=== PATIENT | female | born 1960 | race Caucasian/White ===

== ENCOUNTER → 2018-09-17 | Outpatient (CLI) | payer OTHER ==
[~2018-09-17] MED LIST: ABILIFY5 MG PO; ACIDOPHILUS1 EAC4 PO; ALLEGRA; ASPIR 8181 MG; ASPIRIN325 MG PO; ATENOLOL 25 MG; BUTORPHANOL; CALCIUM 600 +1 EAC8 PO; CINNAMON; CLARITIN10 M2 PO; CO Q-10200 MG; COQ-10 PO; CYCLOBENZAPRINE10 MG PO; DAILY VITAMIN1 EAC3 PO; FISH OIL 1,2001 EACH PO; HORIZANT600 MG; HYDROCODON-ACE1 EAC9 PO; LEVOTHYROXINE; LIPOFEN150 MG PO; LUMIGAN2.5 M1 OP; LUNESTA3 MG PO; MORPHINE SULFAT15 M1; MSIR PO; OXYCODONE HCL20 M1 PO; PRAVASTATIN SOD40 MG PO; PROMETHAZINE; SLO-NIACIN250 MG PO; SLO-NIACIN500 MG; STADOL PO; TIZANIDINE HCL2 MG PO; TRAZODONE HCL50 MG PO; TURMERIC; VITAMIN B-121000 MCG PO; VRAYLAR
--- OUTSIDE RECORDS SUMMARY | 2018-09-17 09:47 | XMS REPORT | Continuity of Care Document ---
Author Author [facility] Organization [facility] Address Unknown Phone Unavailable Care Team Providers Care Medical Geneticist Name Role Phone MD Cosme, Kailey KENNEY Unavailable Insurance Providers Payer name Policy type / Coverage type Policy ID Covered constitution party ID Policy [place] [employer] Encounters Encounter Performer Location Date Office Visit Kailey Aguiar MD [facility] Feb 17, 2015 Problems Problem Effective Dates Problem Status HEADACHE Feb 17, 2015 Active HYPERTENSION Feb 17, 2015 Active HYPERCHOLESTEROLEMIA Feb 17, 2015 Active [facility] BREAST [facility]CER Feb 17, 2015 Active Procedures Date Description Comments Feb 17, 2015 smoking status Never smoker Medications Medication Instructions Start Date Status LYRICA 50 MG CAPS 1 po bid Feb 17, 2015 Active ATENOLOL 25 MG TABS 1 po qd Feb 17, 2015 Active ABILIFY 5 MG TABS 1 po qd Feb 17, 2015 Active LIPOFEN 50 MG CAPS 1 po qhs Feb 17, 2015 Active PRAVASTATIN SODIUM 40 MG TABS 1 po qd Feb 17, 2015 Active CYCLOBENZAPRINE HCL 10 MG TABS 1 po tid prn Feb 17, 2015 Active LUNESTA 3 MG TABS 1 po qhs Feb 17, 2015 Active TRAZODONE HCL 50 MG TABS 1 po qhs Feb 17, 2015 Active MELOXICAM 7.5 MG TABS Feb 17, 2015 Active LUMIGAN 0.01 % SOLN Feb 17, 2015 Active HYDROCODONE-ACETAMINOPHEN 10-325 MG TABS Feb 17, 2015 Active BUTORPHANOL TARTRATE 10 MG/ML SOLN prn Feb 17, 2015 Active COQ10 200 MG CAPS Feb 17, 2015 Active SLO-NIACIN 500 MG CR-TABS Feb 17, 2015 Active FISH OIL 1000 MG CAPS Feb 17, 2015 Active CALCIUM + D3 TABS Feb 17, 2015 Active ASPIRIN 325 MG TABS Feb 17, 2015 Active MULTIVITAMINS CAPS Feb 17, 2015 Active CLARITIN TABS Feb 17, 2015 Active FLONASE SUSP Feb 17, 2015 Active Vital Signs Date Description Test Result Feb 17, 2015 weight E&M - 3141-9 WEIGHT 169 lb Feb 17, 2015 height E&M - 8302-2 HEIGHT 63 in Feb 17, 2015 respiratory rate E&M - 9279-1 RESP RATE 12 /min Feb 17, 2015 pulse rate E&M - 8867-4 PULSE RATE 69 /min Feb 17, 2015 blood pressure, systolic - 8480-6 BP SYSTOLIC 134 mm Hg Feb 17, 2015 blood pressure, diastolic - 8462-4 BP DIASTOLIC 64 mm Hg
--- OUTSIDE RECORDS SUMMARY | 2018-09-17 09:47 | XMS REPORT | Continuity of Care Document ---
Author Author [facility] Interface Address Unknown Phone Unavailable Problems Problem Status Onset Date Classification Date Reported Comments Source HEADACHE Active 02/17/2015 Condition 02/17/2015 Medical Group HYPERTENSION Active 02/17/2015 Condition 02/17/2015 Medical Group HYPERCHOLESTEROLEMIA Active 02/17/2015 Condition 02/17/2015 Medical Group FH BREAST CANCER Active 02/17/2015 Condition 02/17/2015 Medical Group Medications Medication Details Route Status Patient Instructions Ordering Provider Order Date Source LYRICA 50 MG CAPS 1 po bid Active 02/17/2015 Medical Group ATENOLOL 25 MG TABS 1 po qd Active 02/17/2015 Medical Group ABILIFY 5 MG TABS 1 po qd Active 02/17/2015 Medical Group LIPOFEN 50 MG CAPS 1 po qhs Active 02/17/2015 Medical Group PRAVASTATIN SODIUM 40 MG TABS 1 po qd Active 02/17/2015 Medical Group CYCLOBENZAPRINE HCL 10 MG TABS 1 po tid prn Active 02/17/2015 Medical Group LUNESTA 3 MG TABS 1 po qhs Active 02/17/2015 Medical Group TRAZODONE HCL 50 MG TABS 1 po qhs Active 02/17/2015 Medical Group MELOXICAM 7.5 MG TABS Active 02/17/2015 Medical Group LUMIGAN 0.01 % SOLN Active 02/17/2015 Medical Group HYDROCODONE-ACETAMINOPHEN 10-325 MG TABS Active 02/17/2015 Medical Group BUTORPHANOL TARTRATE 10 MG/ML SOLN prn Active 02/17/2015 Medical Group COQ10 200 MG CAPS Active 02/17/2015 Medical Group SLO-NIACIN 500 MG CR-TABS Active 02/17/2015 Medical Group FISH OIL 1000 MG CAPS Active 02/17/2015 Medical Group CALCIUM + D3 TABS Active 02/17/2015 Medical Group ASPIRIN 325 MG TABS Active 02/17/2015 Medical Group MULTIVITAMINS CAPS Active 02/17/2015 Medical Group CLARITIN TABS Active 02/17/2015 Medical Group FLONASE SUSP Active 02/17/2015 Medical Group Allergies, Adverse Reactions, Alerts Substance Category Reaction Severity Reaction type Status Date Reported Comments Source Immunizations Immunization Date Given Site Status Last Updated Comments Source Results Order Name Results Value Reference Range Date Interpretation Comments Source Vital Signs Vital Sign Value Date Comments Source Weight 169 02/17/2015 Medical Group Height 63 02/17/2015 Medical Group Respitory Rate 12 02/17/2015 Medical [facility] Heart Rate 69 02/17/2015 Medical Group Systolic (mm Hg) 134 02/17/2015 Medical Group Diastolic (mm Hg) 64 02/17/2015 Medical Group Encounters Location Location Details Encounter Type Encounter Number Reason For Visit Attending Provider ADM Date DC Date Status Source [facility] Office Visit [id number] Kailey Aguiar MD 02/17/2015 02/17/2015 Medical [facility] Procedures Procedure Code Date Perfomer Comments Source
[2018-09-17 11:02] LABS: ALBUMIN 4.2 g/dL (3.5-5.0); ALBUMIN/GLOBULIN RATIO 1.6 (0.8-2.0); ANION GAP 14.4 mmol/L (8-16); CALCIUM 10.2 mg/dL (8.4-10.2); CREATININE, SERUM 1.22 mg/dL (0.57-1.11); POTASSIUM 4.4 mmol/L (3.5-5.1)
--- NOTE | 2018-09-17 13:01 | Diagnostic Imaging Report ---
Exam: Pelvic ultrasound. History: Bilateral ovarian masses. Comparison: <None.> Findings: Transabdominal sonographic evaluation of the pelvis. The uterus is surgically absent. The right ovary is not visualized. In the right adnexa, there is a 5.4 x 4.1 x 5 cm simple anechoic cyst. The left ovary is not visualized. In the left adnexa, there is a complex cystic lesion which is predominately anechoic but contains several septations. The cyst measures 7.4 x 3.9 x 4.3 cm. No demonstrated doppler flow. No free fluid is visualized in the pelvis. The bladder appears unremarkable. Bilateral ureteral jets are present. Impression: Bilateral ovaries are not visualized. Indeterminate complex left adnexal cystic lesion with associated septations. MRI is suggested for further evaluation. Right adnexal simple cyst. Status post hysterectomy. Signed by: Dr. Juliana Eller MD on 09/17/2018 12:57 PM
== END ==
LOC: US 09:32 → RAD 09:44
PROVIDERS: ATTEND Surgery
DX: N83.202 Unspecified ovarian cyst, left side (principal); N83.201 Unspecified ovarian cyst, right side
CPT/HCPCS: 36415; 76856; 80053; 86304

== ENCOUNTER 2018-10-13 08:27 | Observation (INO) | payer OTHER ==
[2018-10-10 11:58] LABS: BASOPHILS # (AUTO) 0.1 (0.0-0.1); EOSINOPHILS # (AUTO) 0.2 (0.0-0.4); EOSINOPHILS % 2.6 % (0.0-6.0); HEMATOCRIT 43.3 % (34.2-44.1); HEMOGLOBIN 14.3 g/dL (12.0-16.0); LYMPHOCYTES % 41.9 % (18.0-39.1); MEAN CORPUSCULAR HEMOGLOBIN 30.4 pg (28-32); MEAN CORPUSCULAR VOLUME 91.9 fL (81-99); MONOCYTES # (AUTO) 0.6 (0.2-0.8); MONOCYTES % 7.6 % (4.4-11.3); NEUTROPHILS # (AUTO) 3.4 (2.1-6.9); NEUTROPHILS % 46.6 % (38.7-80.0); PLATELET COUNT 206 x10e3/uL (140-360); RED BLOOD COUNT 4.71 x10e6/uL (3.6-5.1); RED CELL DISTRIBUTION WIDTH 17.9 % (11.7-14.4)
[2018-10-10 12:15] LABS: ANION GAP 13.2 mmol/L (8-16); CALCIUM 10.2 mg/dL (8.4-10.2); CREATININE, SERUM 1.09 mg/dL (0.57-1.11); POTASSIUM 4.2 mmol/L (3.5-5.1)
--- NOTE | 2018-10-10 12:25 | Diagnostic Imaging Report ---
EXAMINATION: CHEST 2 VIEWS INDICATION: Pelvic mass. Preop COMPARISON: None FINDINGS: TUBES and LINES: None. LUNGS: Lungs are well inflated. Lungs are clear. There is no evidence of pneumonia or pulmonary edema. PLEURA: No pleural effusion or pneumothorax. HEART AND MEDIASTINUM: The cardiomediastinal silhouette is unremarkable. BONES AND SOFT TISSUES: No acute osseous lesion. Soft tissues are unremarkable. UPPER ABDOMEN: No free air under the diaphragm. IMPRESSION: No acute thoracic abnormality. Signed by: Dr. Rasta Funez M.D. on 10/10/2018 12:22 PM
[~2018-10-13] VITALS: Ht 157.5 cm; Wt 72.1 kg
--- OUTSIDE RECORDS SUMMARY | 2018-10-13 08:28 | XMS REPORT ---
Author Author [facility] Address Unknown Phone Unavailable Care Team Providers Care Meat Grader Name Role Phone Luca VU Unavailable Unavailable Problems This patient has no known problems. Allergies, Adverse Reactions, Alerts This patient has no known allergies or adverse reactions. Medications This patient has no known medications. Results Test Description Test Time Test Comments Text Results Atomic Results Result Comments CHEST 2 VIEWS 2018-10-10 12:22:00 [place] [id number] Patient Name: FELIX HOLLOWAY MR #: [id number] : 1960 Age/Sex: 58/F Req #: [id number] Adm Physician: Ordered by: TUSHAR VU MD Report #: [id number] Location: OR Room/Bed: Procedure: [id number] DX/CHEST 2 VIEWS Exam Date: Exam Time: REPORT STATUS: Signed EXAMINATION: CHEST 2 VIEWS INDICATION: Pelvic mass. Preop COMPARISON: None FINDINGS: TUBES and LINES: None. LUNGS: Lungs are well inflated. Lungs are clear. There is no evidence of pneumonia or pulmonary edema. PLEURA: No pleural effusion or pneumothorax. HEART AND MEDIASTINUM: The cardiomediastinal silhouette is unremarkable. BONES AND SOFT TISSUES: No acute osseous lesion. Soft tissues are unrema rkable. UPPER ABDOMEN: No free air under the diaphragm. IMPRESSION: No acute thoracic abnormality. Signed by: Dr. Rasta Funez M.D. on 10/10/2018 12:22 PM Dictated By: RASTA FUNEZ MD, MD 21 Transcribed By: SANTHOSH on 10/10/181221 COPY TO: TUSHAR VU MD US PELVIS COMPLETE NON OB 2018-09-17 12:47:00 [place] [id number] Patient Name: FELIX HOLLOWAY MR #: [id number] : 1960 Age/Sex: 58/F Req #: [id number] Adm Physician: Ordered by: TUSHAR VU MD Report #: [id number] Location: US Room/Bed: Procedure: [id number] US/US PELVIS COMPLETE NON OB Exam Date: Exam Time: REPORT STATUS: Signed Exam: Pelvic ultrasound. History: Bilateral ovarian masses. Comparison: <None.> Findings: Transabdominal sonographic evaluation of the pelvis. The uterus is surgically absent. The right ovary is not visualized. In the right adnexa, there is a 5.4 x 4.1 x 5 cm simple anechoic cyst. The left ovary is not visualized. In the left adnexa, there is a complex cystic lesion which is predominately anechoic but contains several septations. The cyst measures 7.4 x 3.9 x 4.3 cm. No demonstrated doppler flow. No free fluid is visualized in the pelvis. The bladder appears unremarkable. Bilateral ureteral jets are present. Impression: Bilateral ovaries are not visualized. Indeterminate complex left adnexal cystic lesion with associated septations. MRI is suggested for further evaluation. Right adnexal simple cyst. Status post hysterectomy. Signed by: Dr. Ally Price MD on 09/17/2018 12:57 PM Dictated By: ALLY PRICE MD [id number] Transcribed By: SANTHOSH on 09/17/18 1257 COPY TO: TUSHAR VU MD
[2018-10-13] MEDS ORDERED: BUPIVACAINE 0.25%/EPI 30ML SDV INJ ONE (09:46)
[2018-10-13] MEDS ORDERED: SODIUM CHLORIDE 0.9% 1000ML 1,000 ML IV SCH (12:48)
[2018-10-13] MEDS ORDERED: HYDROCODONE/APAP 7.5MG-325MG 1 EA TAB PO PRN (13:00)
[2018-10-13] MEDS ORDERED: ONDANSETRON HCL INJ 2 MG/ML VIAL IV PRN (13:00)
[2018-10-13] MEDS ORDERED: HYDROMORPHONE 1MG/1ML INJ IV PRN (13:00)
[2018-10-13] MEDS ORDERED: CYCLOBENZAPRINE HCL 10 MG TAB PO SCH ×2 (13:00→15:00)
[2018-10-13] MEDS ORDERED: HYDROMORPHONE 2MG/ML 2 MG/ML ML IV PRN (13:15)
[2018-10-13] MEDS ORDERED: MORPHINE SULFATE 2 MG/ML SYR ONE (13:54)
[2018-10-13] MEDS ORDERED: MORPHINE SULFATE 15MG TAB CR PO SCH (14:00)
--- NOTE | 2018-10-13 14:56 | Operative Report ---
DATE OF PROCEDURE: October 13, 2018 PREOPERATIVE DIAGNOSIS: Bilateral adnexal pelvic masses. POSTOPERATIVE DIAGNOSIS: Bilateral adnexal pelvic masses. OPERATION PERFORMED: Diagnostic laparoscopy and laparoscopic bilateral salpingo-oophorectomy. MEDICAL LABORATORY ASSISTANT: Sima ELLINGTON. ANESTHESIA: General. COMPLICATIONS: None. ESTIMATED BLOOD LOSS: Minimal. DESCRIPTION OF PROCEDURE: With the patient lying in bed in the supine position under good general endotracheal anesthesia, the abdomen was prepped with Betadine solution and draped in the usual manner. A Veress needle was introduced into the umbilicus, and pneumoperitoneum was established without any difficulty. An 11 mm trocar was placed into the umbilicus, and a 10 mm video laparoscope was placed into the intraabdominal cavity. Under direct vision, a 5 mm trocar was placed in the right mid abdomen and another 5 mm trocar was placed in the left mid abdomen. Video laparoscopy at this point revealed some adhesions to the pelvis from the patient's previous surgeries. The sigmoid colon was kind of covering up the adnexal mass of the left side. These adhesions were then slowly and carefully taken down, and the sigmoid colon was brought down. At this point, we were able to visualize the left adnexal mass and this was a firm solid mass that appeared to be solid and was rather hard, did not have the typical appearance of a malignancy but more of a calcified ovarian lesion. On the right side there was a larger mass which was actually a simple cyst of the right ovary. The right ovary was stuck to the lateral wall on the side from the patient's previous pelvic surgery. We decided to go ahead and resect both masses using the LigaSure device. The left mass was then from the sigmoid colon, and using the LigaSure the pedicle to the mass was slowly and carefully divided without any difficulty. The mass was left in the left lateral gutter, and we then went ahead and proceeded to mobilize the mass on the right side, which had a lot more adhesions. The small bowel and the sigmoid colon were stuck to it, and it was until we could lift it up. At this point the mass was then slowly and carefully from its blood supply using the LigaSure device and was totally and completely resected. Both masses were then placed in a pouch and removed through the umbilical incision after enlarging it in order to be able to allow for passage of the large lesions. Video laparoscopy was then again carried out. The whole area was thoroughly irrigated. Perfect hemostasis was ascertained. All of the excess fluid was aspirated. The pneumoperitoneum was evacuated, and all the trocars were removed under direct vision. The midline fascia at the umbilicus was then closed with 3 [id number] of 0 Vicryl. All layers were infiltrated on the way out with solution of 1/4 percent Marcaine. Subcutaneous tissue was approximated with 3-0 Vicryl, and the skin was closed with subcuticular 5-0 Vicryl. Benzoin, Steri-Strips and Band-Aids were applied. The sponge, lap and needle count was correct. The patient tolerated the procedure well and returned to the recovery room in stable condition. Job#: [id number] DORIS
[2018-10-13 15:04] VITALS: BP 122/61
[2018-10-13 15:24] VITALS: BP 122/61
[2018-10-13] MEDS ORDERED: ACETAMINOPHEN 1000 MG/100 ML IV ONE (15:52)
[2018-10-13] MEDS ORDERED: ROCURONIUM BROMIDE 10 MG/ML 5ML VIAL ONE (15:52)
[2018-10-13] MEDS ORDERED: SEVOFLURANE INHAL SOLN 250 ML PEN BTL ONE (15:52)
[2018-10-13] MEDS ORDERED: GLYCOPYRROLATE INJ 1MG/ 5 ML SYR ONE (15:52)
[2018-10-13] MEDS ORDERED: DEXAMETHASONE SOD PHOS INJ 4 MG/ML VIAL ONE (15:52)
[2018-10-13] MEDS ORDERED: LIDOCAINE HCL 2% LOCAL INJ 5 ML SDV VIAL INJ ONE (15:52)
[2018-10-13] MEDS ORDERED: KETOROLAC TROMETHAMINE 30 MG/ML VIAL ONE (15:52)
[2018-10-13] MEDS ORDERED: NEOSTIGMINE 5 MG/5ML SYR ONE (15:52)
[2018-10-13] MEDS ORDERED: EPHEDRINE SULFATE INJ 50 MG/10 ML SYR ONE (15:52)
[2018-10-13] MEDS ORDERED: ONDANSETRON HCL INJ 2 MG/ML VIAL ONE (15:52)
[2018-10-13] MEDS ORDERED: PROPOFOL IV EMULSION 10 MG/ML 20 ML VIAL ONE (15:52)
[2018-10-13] MEDS ORDERED: OXYCODONE HCL 20 MG TAB CR PO SCH (18:00)
[2018-10-13] MEDS ORDERED: MIDAZOLAM HCL 2 MG/2 ML VIAL ONE (19:16)
[2018-10-13] MEDS ORDERED: FENTANYL CITRATE/PF 100MCG/2 ML INJ ONE (19:16)
[2018-10-13] MEDS ORDERED: TRAZODONE HCL 50 MG TAB PO SCH (21:00)
[2018-10-13] MEDS ORDERED: BIMATOPROST(OPTH) 2.5 ML BOTTLE OP SCH (21:00)
== END 2018-10-13 18:45 | disposition home or self-care (01) ==
LOC: OR 08:27 → PACU V 12:51 → IMCU 15:02
PROVIDERS: ADMIT Surgery; ATTEND Surgery
DX: D27.1 Benign neoplasm of left ovary (principal); D27.0 Benign neoplasm of right ovary; N83.8 Other noninflammatory disorders of ovary, fallopian tube and broad ligament; G89.29 Other chronic pain; I10 Essential (primary) hypertension; I25.10 Atherosclerotic heart disease of native coronary artery without angina pectoris; Z95.5 Presence of coronary angioplasty implant and graft; Z79.82 Long term (current) use of aspirin
CPT/HCPCS: 36415; 58661; 71046; 80048; 85025; 88307; 88311; 93005; C1766; G0378; J0131; J1100; J1885; J2001; J2250; J2270; J2405; J2704; J3490; J7030; 88304

== ENCOUNTER → 2023-02-22 | Day surgery (SDC) | payer OTHER ==
[2023-02-19 16:48] LABS: BASOPHILS # (AUTO) 0.1 (0.0-0.1); EOSINOPHILS # (AUTO) 0.1 (0.0-0.4); EOSINOPHILS % 2.1 % (0.0-6.0); HEMATOCRIT 39.9 % (34.2-44.1); HEMOGLOBIN 13.1 g/dL (12.0-16.0); LYMPHOCYTES # (AUTO) 2.1 (1.0-3.2); LYMPHOCYTES % 36.4 % (18.0-39.1); MEAN CORPUSCULAR HEMOGLOBIN 33.9 pg (28-32); MEAN CORPUSCULAR HGB CONC 32.8 g/dL (31-35); MEAN CORPUSCULAR VOLUME 103.4 fL (81-99); MONOCYTES # (AUTO) 0.4 (0.2-0.8); MONOCYTES % 7.2 % (4.4-11.3); NEUTROPHILS # (AUTO) 3.1 (2.1-6.9); PLATELET COUNT 117 x10e3/uL (140-360); RED BLOOD COUNT 3.86 x10e6/uL (3.6-5.1); RED CELL DISTRIBUTION WIDTH 16.7 % (11.7-14.4)
[2023-02-19 17:04] LABS: ANION GAP 14.1 mmol/L (8-16); CALCIUM 9.7 mg/dL (8.4-10.2); CREATININE, SERUM 1.26 mg/dL (0.57-1.11); POTASSIUM 5.1 mmol/L (3.5-5.1)
[~2023-02-22] MED LIST changes: +ALPRAZOLAM0.25 M1 PO; +AZO BLADDER CO300 MG PO; +BACLOFEN10 MG PO; +BIOTENE MOIST44.3 ML PO; +BUSPIRONE HCL5 MG PO; +BUTRANS1 EACH TOP; +CEFTRIAXONE 1 GM VIAL ONE; +DEXAMETHASONE SOD PHOS INJ 4 MG/ML SDV ONE; +EPHEDRINE SULFATE INJ 50 MG/ML VIAL ONE; +FENTANYL CITRATE/PF 100MCG/2 ML INJ ONE; +GENTAMICIN 80MG/NS 100 ML 200 ML IV ONE; +HYDROMORPHONE PO; +IOPAMIDOL 610MG/1ML 300 MG/ML VIAL IV ONE; +LACTAID3000 UNI1 PO; +LACTATED RINGER'S 1,000 ML ONE; +LIDOCAINE HCL 2% LOCAL INJ 5 ML SDV VIAL INJ ONE; +METFORMIN HCL500 MG PO; +MIDAZOLAM HCL 2 MG/2 ML VIAL ONE; +ONDANSETRON HCL INJ 2MG/ML 2ML 2 MG/ML VIAL ONE; +PATADAY2.5 ML OU; +POTASSIUM CITR10 MEQ PO; +POVIDONE IODINE 0.05% 0.05 % ML PO ONE; +PROPOFOL IV EMULSION 10 MG/ML 20 ML VIAL ONE; +REFRESH PLUS1 EACH OU; +ROCKLATAN 0.022.5 ML OU; +SALINE NOSE SPR45 ML INH; +SEVOFLURANE INHAL SOLN 250 ML PEN BTL ONE; +VESICARE5 MG PO; +ZETIA10 MG PO; +[UNRECOGNIZED DRUG - OTHER] PO
[2023-02-22 12:00] VITALS: BP 140/59
== END | disposition home or self-care (01) ==
LOC: OR 07:02
PROVIDERS: ATTEND Urology
DX: N20.0 Calculus of kidney (principal); N13.30 Unspecified hydronephrosis; N28.9 Disorder of kidney and ureter, unspecified; N95.2 Postmenopausal atrophic vaginitis; N81.10 Cystocele, unspecified; N13.8 Other obstructive and reflux uropathy; Z01.810 Encounter for preprocedural cardiovascular examination; Z01.812 Encounter for preprocedural laboratory examination; Z01.818 Encounter for other preprocedural examination; Z79.82 Long term (current) use of aspirin; Z79.84 Long term (current) use of oral hypoglycemic drugs; Z79.899 Other long term (current) drug therapy
CPT/HCPCS: 36415; 50590; 52332; 71046; 74018; 80048; 83970; 84550; 85025; 87086; 93005; C1758; C1769; C1874; J0696; J1100; J1580; J2001; J2250; J2405; J2704; J3010; J7121; Q9967

== ENCOUNTER → 2023-03-20 | Day surgery (SDC) | payer OTHER ==
[~2023-03-20] MED LIST changes: +ACETAMINOPHEN 1000 MG/100 ML 0 ML IV ONE; -FENTANYL CITRATE/PF 100MCG/2 ML INJ ONE; +GLYCOPYRROLATE INJ 0.2 MG/ML VIAL ONE; -MIDAZOLAM HCL 2 MG/2 ML VIAL ONE; +PHENYLEPHRINE HCL 1% 10 MG/ML VIAL ONE; +VASOPRESSIN INJ 20 UNIT/ML VIAL ONE
[2023-03-20 08:13] VITALS: TEMP 97.2
[2023-03-20 09:45] VITALS: BP 111/52; PULSE 86; RESP 18; O2SAT 96
== END | disposition home or self-care (01) ==
LOC: OR 08:49
PROVIDERS: ATTEND Urology
DX: N20.0 Calculus of kidney (principal); N13.30 Unspecified hydronephrosis; Z46.6 Encounter for fitting and adjustment of urinary device; N81.10 Cystocele, unspecified; N28.89 Other specified disorders of kidney and ureter; N95.2 Postmenopausal atrophic vaginitis; Z01.818 Encounter for other preprocedural examination; Z79.899 Other long term (current) drug therapy
CPT/HCPCS: 52332; 52351; 74018; 74420; 87086; C1758; C1769; C1874; J1100; J1580; J2001; J2370; J2405; J2704; J7121; Q9967; J0696

== ENCOUNTER → 2023-05-29 | Outpatient (CLI) | payer MEDICARE ==
[~2023-05-29] MED LIST changes: -ACETAMINOPHEN 1000 MG/100 ML 0 ML IV ONE; -CEFTRIAXONE 1 GM VIAL ONE; -DEXAMETHASONE SOD PHOS INJ 4 MG/ML SDV ONE; -EPHEDRINE SULFATE INJ 50 MG/ML VIAL ONE; -GENTAMICIN 80MG/NS 100 ML 200 ML IV ONE; -GLYCOPYRROLATE INJ 0.2 MG/ML VIAL ONE; +IOPAMIDOL 370 MG/ML 100 ML INFUS..BTL INJ ONE; -IOPAMIDOL 610MG/1ML 300 MG/ML VIAL IV ONE; -LACTATED RINGER'S 1,000 ML ONE; -LIDOCAINE HCL 2% LOCAL INJ 5 ML SDV VIAL INJ ONE; -ONDANSETRON HCL INJ 2MG/ML 2ML 2 MG/ML VIAL ONE; -PHENYLEPHRINE HCL 1% 10 MG/ML VIAL ONE; -POVIDONE IODINE 0.05% 0.05 % ML PO ONE; -PROPOFOL IV EMULSION 10 MG/ML 20 ML VIAL ONE; -SEVOFLURANE INHAL SOLN 250 ML PEN BTL ONE; +SODIUM CHLORIDE 0.9% 100 ML ONE; -VASOPRESSIN INJ 20 UNIT/ML VIAL ONE
[2023-05-29 16:32] LABS: CREATININE, SERUM 1.22 mg/dL (0.57-1.11)
== END ==
LOC: CT 15:20
PROVIDERS: ATTEND Nurse Practitioner Family
DX: R59.9 Enlarged lymph nodes, unspecified (principal)
CPT/HCPCS: 36415; 70491; 82565; 84520; J7050; Q9967

== ENCOUNTER → 2024-08-25 | Day surgery (SDC) | payer MEDICARE ==
[2024-08-19 10:30] LABS: BASOPHILS # (AUTO) 0.1 (0.0-0.1); BASOPHILS % 0.9 % (0.0-1.0); EOSINOPHILS # (AUTO) 0.1 (0.0-0.4); EOSINOPHILS % 2.2 % (0.0-6.0); HEMATOCRIT 44.5 % (34.2-44.1); HEMOGLOBIN 14.2 g/dL (12.0-16.0); LYMPHOCYTES % 17.7 % (18.0-39.1); MEAN CORPUSCULAR HEMOGLOBIN 31.8 pg (28-32); MEAN CORPUSCULAR HGB CONC 31.9 g/dL (31-35); MEAN CORPUSCULAR VOLUME 99.8 fL (81-99); MONOCYTES # (AUTO) 0.7 (0.2-0.8); MONOCYTES % 11.5 % (4.4-11.3); NEUTROPHILS # (AUTO) 3.9 (2.1-6.9); NEUTROPHILS % 67.2 % (38.7-80.0); PLATELET COUNT 199 x10e3/uL (140-360); RED BLOOD COUNT 4.46 x10e6/uL (3.6-5.1); WHITE BLOOD COUNT 5.81 x10e3/uL (4.8-10.8)
[2024-08-19 10:55] LABS: ANION GAP 15.3 mmol/L (8-16); CALCIUM 10.5 mg/dL (8.4-10.2); CREATININE, SERUM 1.26 mg/dL (0.57-1.11)
[2024-08-19 10:59] LABS: POTASSIUM 5.3 mmol/L (3.5-5.1)
[~2024-08-25] MED LIST changes: +ALBUTEROL0.63 MG/3 NEB; +ALLEGRA ALLERGY60 MG PO; +ATENOLOL50 MG PO; +BENICAR20 MG PO; +BOTOX100 UNIT; +BREO ELLIPTA 11 EACH INH; +BUPIVACAINE HCL 0.5% INJ 30 ML VIAL INJ ONE; +CO Q-10200 MG PO; +DEXAMETHASONE SOD PHOS INJ 4 MG/ML SDV ONE; +FENTANYL CITRATE/PF 100MCG/2 ML INJ ONE; +HYDROMORPHONE HC2 MG PO; -IOPAMIDOL 370 MG/ML 100 ML INFUS..BTL INJ ONE; +KETOROLAC TROMETHAMINE 30 MG/ML VIAL ONE; +KLONOPIN0.5 MG PO; +LEVOTHYROXINE50 MCG PO; +LIDOCAINE HCL 2% LOCAL INJ 5 ML SDV VIAL INJ ONE; +MIDAZOLAM HCL 2 MG/2 ML VIAL ONE; +MUPIROCIN 2% OINT 22 GM TUBE ONE; +ONDANSETRON HCL INJ 2MG/ML 2ML 2 MG/ML VIAL ONE; +PROMETHAZINE HC25 M1 PO; +PROPOFOL IV EMULSION 10 MG/ML 20 ML VIAL ONE; +SEVOFLURANE INHAL SOLN 250 ML PEN BTL ONE; -SODIUM CHLORIDE 0.9% 100 ML ONE; +VRAYLAR3 MG PO
[2024-08-25] MEDS: CLINDAMYCIN 600MG / 50ML 50 ML IV ONE (06:24)
[2024-08-25] MEDS: LACTATED RINGER'S 1,000 ML ONE (06:25)
[2024-08-25 08:10] VITALS: BP 140/66; PULSE 65; RESP 16; O2SAT 96
== END | disposition home or self-care (01) ==
LOC: OR 05:22
PROVIDERS: ATTEND Plastic Surgery
DX: M65.311 Trigger thumb, right thumb (principal); I10 Essential (primary) hypertension; E11.9 Type 2 diabetes mellitus without complications; I25.10 Atherosclerotic heart disease of native coronary artery without angina pectoris; I25.2 Old myocardial infarction; E78.5 Hyperlipidemia, unspecified; E03.9 Hypothyroidism, unspecified; J44.9 Chronic obstructive pulmonary disease, unspecified; F31.9 Bipolar disorder, unspecified; F17.290 Nicotine dependence, other tobacco product, uncomplicated; Z91.048 Other nonmedicinal substance allergy status; Z88.0 Allergy status to penicillin; Z88.8 Allergy status to other drugs, medicaments and biological substances; Z01.810 Encounter for preprocedural cardiovascular examination; Z01.812 Encounter for preprocedural laboratory examination; Z01.818 Encounter for other preprocedural examination; Z79.84 Long term (current) use of oral hypoglycemic drugs; Z79.899 Other long term (current) drug therapy
CPT/HCPCS: 26055; 36415 ×2; 71046; 80048; 84132; 85025; 93005; J2250; J3010; J7121; J1100; J1885; J2003; J2405